=== PATIENT | male | born 1980 | race Caucasian/White ===

== ENCOUNTER 2017-11-20 15:09 | Outpatient (RCR) | payer MEDICAID, SELFPAY ==
--- NOTE | 2017-11-20 16:59 | HP.PTEVAL ---
Patient's Visit Information FERNANDEZ EAGLE is a 37 year old M referred to Physical Therapy by MD BREANNA Whitney with a diagnosis of LUMBAR DDD,LR. Date of Evaluation: 11/20/17 Physical Therapist: Bishnu Becerra PT, - Visit Plan Frequency: 2x /Week Duration: 4 Weeks Plan: DLS,POSTURAL EX'S ,TEOFILO EX'S,MODLAITIES - Subjective Subjective: This 37 y/o male presents to physical therapy with lumbar pain with radicular symptoms blateral legs.Patient states right leg shorter. Tried chiropractor with adjustments didnt help but did have improve lumbar ROM.Pain affects lumbar spine. Symptoms worse with bending ,lifting,twisting,extended stnding walking.Symtoms better with walking and rest. Denies paratrhesia/tingling .Coughing/sneezing -. Bowel/bladder good. Patient has difficulty sleeping. History of falling [address] recommended DR Kerr. SOCAIL: single ,one children. VOCATION: [employer] - Pain Bilateral Back Pain Intensity (Out of 10): 5 Pain Intensity Range: 10 Right Lower Extremity Pain Intensity (Out of 10): 3 Pain Intensity Range: 10 - Objective POSTURE:mild/mod thoracic kyphosis, right shorter ,ASIS,ILIAC CREST ELEVATED. GAIT: reciprocal pattern mild foward posture. NEURO: inact ,denies parathesia/tingling,reflexes L3-4,L4-5,L5-S1 1/3. PALAPTION: unremarkable. MMT: quads/hams/ankle 4/5,hip flex 4-/5 ,great toe 4/5. FLEXABLILITY: hams min tight. LUMBAR ROM: flexion mod loss,extension min/mod loss,side glides mod right ,min loss right - Special Tests L/S Slump test left side: Negative L/S Slump test right side: Negative L/S Left Straight Leg Raise: Negative L/S Right Straight Leg Raise: Negative Lumbar Standing: Flexion - Mechanical Response: No effect Lumbar Standing: Flexion - Symptoms During Testing: Increases Lumbar Standing: Flexion - Symptoms After Testing: No worse Lumbar Standing: Extension - Mechanical Response: No effect Lumbar Standing: Extension - Symptoms During Testing: Increases Lumbar Standing: Extension - Symptoms After Testing: No worse Lumbar Lying: Flexion - Mechanical Response: No effect Lumbar Lying: Flexion - Symptoms During Testing: Produces Lumbar Lying: Extension - Mechanical Response: Increases motion Lumbar Lying: Extension - Symptoms During Testing: Abolishes Lumbar Lying: Extension - Symptoms After Testing: Better - Goals Goal 1:: Independant with HEP Goal Time Frame: 4-6 Weeks Goal 2:: Independant with posture/body mechanics Goal Time Frame: 4-6 Weeks Goal 3:: Decrease lumbar pain by 50 % or greater to improve function. Goal Time Frame: 4-6 Weeks Goal 4:: Patient improve lumbar ROM for function of recovery Goal Time Frame: 4-6 Weeks Goal 5:: Patient be able to perform ADL'S and job demnads with min limitaions Goal Time Frame: 4-6 Weeks - Rehabilitation Potential Physical Therapy Diagnosis: This 37 y/o male presents lumbar pain with radicular symptoms with decrease posture,weak core muscles,leg length unable to correct with METS, pain which impairs function/job dedmands. Rehabilitation Potential: Good - Anticipated Interventions Patient/Client Instruction: Educate patient on: Condition, Plan of Care For the Purpose of:: To decrease pain, To increase ROM, To improve muscle performance and motor function, To improve ability to perform ADL's, To increase tolerance to activity/condition/position, To improve ability of physical actions for home/community/work/leisure, To improve health of tissue, To decrease soft tissue restriction, To increase flexibility/ROM, To reduce risk of recurrence, To improve tolerance to ADL's Therapeutic Exercise to Include: Strength training, Body mechanics, Postural training, Flexibilty training, Dynamic Lumbar Stabilization, Teofilo Exercises For the Purpose of:: To decrease pain, To increase ROM, To improve muscle performance and motor function, To improve ability to perform ADL's, To increase tolerance to activity/condition/position, To improve ability of physical actions for home/community/work/leisure, To improve health of tissue, To decrease soft tissue restriction, To increase flexibility/ROM, To prevent re-injury, To improve ability to perform tasks related to life management TENS: Yes IF ES: Yes Cryotherapy (ice pack, ice massage): Yes Thermo therapy (hot pack): Yes Ultrasound (thermal/non thermal): Yes For the Purpose of:: To decrease pain, To improve nutrient delivery to tissue, To increase oxygenation perfusion, To improve health of tissue, To decrease soft tissue restriction, To improve ability to perform tasks related to life management Thank you for the opportunity to evaluate your patient. For Medicare and Medicare HMO plans, please review the plan of care and approve it. It will need to be FAXED BACK to us at [phone] for Medicare purposes. Please let me know if there are questions or concerns regarding this plan of care. Physician Signature: Date:
--- NOTE | 2018-01-08 13:17 | HP.PTDCNRP_ITS ---
HP - Discharge Summary (1) - Patient Information FERNANDEZ EAGLE was seen in my office for initial evaluation on 11/20/17. The following Plan of Care was established for this patient: Initial Frequency: 2x /Week Initial Duration: 4 Weeks - Anticipated Interventions Patient/Client Instruction: Educate patient on: Condition, Plan of Care For the Purpose of:: To decrease pain, To increase ROM, To improve muscle performance and motor function, To improve ability to perform ADL's, To increase tolerance to activity/condition/position, To improve ability of physical actions for home/community/work/leisure, To improve health of tissue, To decrease soft tissue restriction, To increase flexibility/ROM, To reduce risk of recurrence, To improve tolerance to ADL's Therapeutic Exercise to Include: Strength training, Body mechanics, Postural training, Flexibilty training, Dynamic Lumbar Stabilization, Hellen Exercises For the Purpose of:: To decrease pain, To increase ROM, To improve muscle performance and motor function, To improve ability to perform ADL's, To increase tolerance to activity/condition/position, To improve ability of physical actions for home/community/work/leisure, To improve health of tissue, To decrease soft tissue restriction, To increase flexibility/ROM, To prevent re- injury, To improve ability to perform tasks related to life management TENS: Yes IF ES: Yes Cryotherapy (ice pack, ice massage): Yes Thermo therapy (hot pack): Yes Ultrasound (thermal/non thermal): Yes For the Purpose of:: To decrease pain, To improve nutrient delivery to tissue, To increase oxygenation perfusion, To improve health of tissue, To decrease soft tissue restriction, To improve ability to perform tasks related to life management This patient was last seen in our office . Pertinent comments regarding their Physical therapy will appear below: Patient seen for PT lumbar radiculopathy focusing on modlaities ,DLS,postural ex 's. Thus is d/c and return to MD. At this point I will be discontinuing this patient from physical therapy. I would be happy to see this patient again in the future if found appropriate by the physician. Thank you! Bishnu Becerra, PT,
== END 2017-11-20 19:00 | disposition home or self-care (01) ==
LOC: PT 15:09
PROVIDERS: Family Provider Family Medicine; PCP Family Medicine; Visit Provider Anesthesiology Pain Medicine
DX: M51.36 Other intervertebral disc degeneration, lumbar region (principal)
CPT/HCPCS: 97161

== ENCOUNTER 2018-04-29 12:31 | Emergency (ER) | payer MEDICAID, SELFPAY ==
[2018-04-29 12:31] VITALS: BP 143/80; PULSE 67; RESP 14; TEMP 36.4; O2SAT 97; BMI 35.6
--- NOTE | 2018-04-29 14:11 | ED.VISSUMM ---
- ER Visit Summary Date of Service: 04/29/18 Chief Complaint: Back pain History of Present Illness: The patient is a 38 M who states that yesterday he was helping move some boxes and towards the end of the day had a gradual stiffening of his low back. By today he was having painful range of motion. He states he feels it in his feet. He has a history of chronic back issues having had degenerative disc disease. He states he is in the process of changing pain management doctors. Patient takes Mobic as well as Zanaflex. He denies any bowel or bladder dysfunction. No IV drug use. No fevers. No rashes. Denies any actual numbness or muscle weakness. Physical Examination: Afebrile vital signs are stable Gen: Well-nourished well-developed Head: Normocephalic atraumatic Eyes: Perrl EOMI ENT: TMs clear no rhinorrhea moist mucous membranes Neck: Supple no lymphadenopathy no JVD nontender CVS: Regular rate rhythm no murmurs normal S1-S2 Respiratory: No distress clear to auscultation bilaterally chest nontender Abdomen: Soft nontender nondistended normal bowel sounds no masses Back: Patient has paraspinal musculature tenderness in the lumbar region. Extremity: Nontender no edema Skin: Normal color no rash Neuro: alert orientated ?3 CN II-XII intact normal strength sensation reflexes gait cerebellar Psych: Normal affect normal mood Emergency Department Course and Treatment: Patient notes progressive pain after moving boxes. This is most likely a muscular strain. I will give him a dose of Toradol and Norflex here. He already has home pain medication. He is to rest stretch and use heat. He may follow-up with his doctors. Impression: 1. Lumbar muscle strain This note was generated with [employer] dictation software. It may contain incorrect words, spelling, and punctuation that were not noted in review of the chart prior to signing ED Disposition - Plan for ED Patient: Disposition: Home or Assisted Living Chief Complaint: Back Instructions: ED Sprain Strain Lumbar Referrals: Vinod Mirza MD [STAFF PHYSICIAN] - 1 Week if not improving Additional Instructions: I would recommend rest, avoidance of lifting further boxes, heating pad, your home medications.
[2018-04-29] MEDS: Ketorolac 60 MG/2 ML Vial IM (14:23)
[2018-04-29] MEDS: Orphenadrine 60 MG/2 ML Ampul IM (14:24)
[2018-04-29 14:38] VITALS: BP 118/72; PULSE 59; RESP 16; O2SAT 98
== END 2018-04-29 14:39 | disposition home or self-care (01) ==
PROVIDERS: Emergency Provider Emergency Medicine
DX: S39.012A Strain of muscle, fascia and tendon of lower back, initial encounter (principal); X50.0XXA Overexertion from strenuous movement or load, initial encounter; Y93.89 Activity, other specified; Y92.9 Unspecified place or not applicable; M51.36 Other intervertebral disc degeneration, lumbar region; K21.9 Gastro-esophageal reflux disease without esophagitis; F41.9 Anxiety disorder, unspecified; Z79.82 Long term (current) use of aspirin; Z79.899 Other long term (current) drug therapy
CPT/HCPCS: 96372; 99282